=== PATIENT | male | born 1975 | race African-American/Black ===

== ENCOUNTER → 2018-12-24 | Outpatient (CLI) | payer OTHER | LOC: MHCPAIN 14:32 | DX: G89.29 Other chronic pain (principal); M47.817 Spondylosis without myelopathy or radiculopathy, lumbosacral region; M54.16 Radiculopathy, lumbar region; M53.3 Sacrococcygeal disorders, not elsewhere classified | CPT/HCPCS: G0463 ==

== ENCOUNTER → 2019-01-30 | Outpatient (CLI) | payer OTHER | LOC: MHCPAIN 09:14 | DX: M47.817 Spondylosis without myelopathy or radiculopathy, lumbosacral region (principal); M54.16 Radiculopathy, lumbar region | CPT/HCPCS: J1100; Q9967 ==

== ENCOUNTER → 2019-02-11 | Outpatient (CLI) | payer OTHER | LOC: MHCPAIN 09:02 | DX: G89.29 Other chronic pain (principal); M47.817 Spondylosis without myelopathy or radiculopathy, lumbosacral region; M54.16 Radiculopathy, lumbar region; M53.3 Sacrococcygeal disorders, not elsewhere classified | CPT/HCPCS: G0463 ==

== ENCOUNTER → 2019-10-13 | Outpatient (CLI) | payer OTHER | LOC: MHCPAIN 03-13 15:06 | DX: M54.5 Low back pain (principal); M54.17 Radiculopathy, lumbosacral region; G89.29 Other chronic pain; M53.3 Sacrococcygeal disorders, not elsewhere classified | CPT/HCPCS: G0463 ==

== ENCOUNTER → 2019-10-23 | Outpatient (CLI) | payer OTHER | LOC: MHCPAIN 08:52 | DX: M47.817 Spondylosis without myelopathy or radiculopathy, lumbosacral region (principal); M54.5 Low back pain | CPT/HCPCS: J1100; Q9967 ==

== ENCOUNTER → 2019-11-05 | Outpatient (CLI) | payer OTHER | LOC: MHCPAIN 08:18 | DX: M47.817 Spondylosis without myelopathy or radiculopathy, lumbosacral region (principal); M54.5 Low back pain; M53.3 Sacrococcygeal disorders, not elsewhere classified; G89.29 Other chronic pain; M54.16 Radiculopathy, lumbar region | CPT/HCPCS: G0463 ==

== ENCOUNTER → 2019-11-17 | Outpatient (CLI) | payer OTHER | LOC: MHCPAIN 12:52 | DX: M47.817 Spondylosis without myelopathy or radiculopathy, lumbosacral region (principal); M54.5 Low back pain; M53.3 Sacrococcygeal disorders, not elsewhere classified | CPT/HCPCS: J1100; Q9967 ==

== ENCOUNTER → 2019-12-02 | Outpatient (CLI) | payer OTHER | LOC: MHCPAIN 08:16 | DX: M47.817 Spondylosis without myelopathy or radiculopathy, lumbosacral region (principal); M54.5 Low back pain; M53.3 Sacrococcygeal disorders, not elsewhere classified; G89.29 Other chronic pain; M54.16 Radiculopathy, lumbar region | CPT/HCPCS: G0463 ==